=== PATIENT | female | born 1970 | race Caucasian/White ===

== ENCOUNTER 2016-10-30 05:54 | Day surgery (SDC) | payer OTHER ==
[~2016-10-30] VITALS: Ht 162.6 cm; Wt 61.2 kg
--- NOTE | ~2016-10-30 | H ---
[facility] [place] [address] HISTORY AND PHYSICAL Name: PEDRO LUIS CRISTINA Room #: 150-4 [facility]..#: [id number] Admission: 10/30/16 Attend Phys: Joseph Polanco MD Discharge: Date of : 74 Report #: [id number] THIS REPORT FOR: //name// CC: Joseph Bundy [facility] ANTICIPATED DATE OF PROCEDURE: 10/30/2016. HISTORY OF PRESENT ILLNESS: The patient has been on several courses of antibiotics since June for sinus infections. She has drainage, headache, cough, wheezing, nasal congestion and yellow-green mucus. She has been treated with steroids and antibiotics. She has a deviated nasal septum. PAST MEDICAL HISTORY: Otherwise significant for asthma, heart problems and migraine headaches. MEDICATIONS: Cyclobenzaprine, Zyrtec, pantoprazole, Elmiron, Carafate, Singulair, acyclovir, citalopram, clonazepam and trazodone. ALLERGIES: She is allergic to PENICILLIN, SULFA, ASPIRIN and LATEX. PHYSICAL EXAMINATION: HEENT: She has a severely deviated nasal septum to the right side with stringy mucus and irritation. Her oropharynx and oral cavity were clear. NECK: She had no adenopathy or masses in her neck. IMPRESSION: Deviated nasal septum with nasal airway obstruction. PLAN: Nasal septoplasty. <ELECTRONICALLY SIGNED> By: Joseph Polanco MD 10/30/16 0740 [id number] Joseph Polanco MD /thalia
--- NOTE | ~2016-10-30 | O ---
[facility] [place] [address] OPERATIVE REPORT Name: PEDRO LUIS CRISTINA Room #: 150-4 [facility] M..#: [id number] Admission: 10/30/16 Attend Phys: Joseph Polanco MD Discharge: Date of : 74 Report #: [id number] THIS REPORT FOR: //name// CC: Joseph Bundy [facility] DATE OF SERVICE: 10/30/2016 PREOPERATIVE DIAGNOSIS: Deviated nasal septum with nasal airway obstruction. POSTOPERATIVE DIAGNOSIS: Deviated nasal septum with nasal airway obstruction. OPERATIVE PROCEDURE: Nasal septoplasty. ANESTHESIA: General by laryngeal mask. DESCRIPTION OF PROCEDURE: The patient was taken to the operating room and placed in supine position. General anesthesia was induced by laryngeal mask. Once adequate general anesthesia was obtained, local nasal anesthesia was induced by the submucoperichondrial injection of 1% lidocaine with 1:100,000 epinephrine and topical application of cocaine solution. The patient was then draped in a sterile manner. The patient had a nasal septal deviation primarily to the right side, with protrusion of the cartilage into the left nasal vestibule. A hemitransfixion incision was placed on the right side of the nose and the mucoperichondrium and mucoperiosteum were elevated off of the septum. The cartilage was incised in front of the bony cartilaginous junction and a portion of cartilage and bone was removed from the midportion of the septum. There was septal spur along the floor, which consisted of hypertrophic cartilage and a fracture of the maxillary crest. The cartilage was removed as a long strip and the maxillary crest was infractured. I then isolated the anterior cartilaginous septum on both sides and trimmed 2 mm of free edge cartilage and then fitted into a columellar pocket. After these maneuvers, the septum sat more in the midline. The hemitransfixion incision was then closed with 4-0 chromic suture and a 4-0 plain mattress suture was placed as well. The patient tolerated the procedure well. Blood loss approximately 10 mL. The patient was then awoken and taken to the recovery room in stable condition for postoperative monitoring. By: [id number] Joseph Polanco MD /nt
[~2016-10-30 05:54] MED LIST: ACYCLOVIR 400400 MG PO; ADVAIR 250-501 EACH INH; CARAFATE 1 GM TA1 G1 PO; CEFDINIR300 MG PO; CETIRIZINE HCL10 MG PO; CITALOPRAM HBR40 MG PO; CLONAZEPAM 0.50.5 M1 PO; DICYCLOMINE HCL20 MG PO; DILAUDID4 MG PO; ELMIRON 100 MG100 M1 PO; FLONASE 0.05%50 MCG NASAL; GAS-X125 MG PO; HYDROCODON-ACE1 EAC7 PO; IMITREX 25 MG T25 M1 PO; LIORESAL 10 MG10 MG PO; METHENAMINE HIPP1 G1 PO; MIRENA1 EACH IY; MUCINEX TA600 MG/TA2 PO; NAPROSYN500 MG PO; ONDANSETRON HCL4 M2 PO; PANTOPRAZOLE SO40 M1 PO; PRENATE ELITE1 EAC2 PO; REQUIP1 MG PO; SINGULAIR 10 MG10 M1 PO; STOOL SOFTENER100 MG PO; SUDAFED PE10 M2 PO; TRAZODONE HCL100 MG PO; ZANAFLEX4 MG PO
[2016-10-30 08:30] VITALS: BP 100/66
== END 2016-10-30 10:10 | disposition home or self-care (01) ==
LOC: OR 05:54 → TBA 05:54 → OR 09:00
DX: J34.2 Deviated nasal septum (principal); J34.89 Other specified disorders of nose and nasal sinuses; J45.909 Unspecified asthma, uncomplicated; G43.909 Migraine, unspecified, not intractable, without status migrainosus; I50.9 Heart failure, unspecified; K21.9 Gastro-esophageal reflux disease without esophagitis; F32.9 Major depressive disorder, single episode, unspecified; F41.9 Anxiety disorder, unspecified; F17.210 Nicotine dependence, cigarettes, uncomplicated; Z90.49 Acquired absence of other specified parts of digestive tract; Z98.890 Other specified postprocedural states
CPT/HCPCS: 50010; 50101; 50386; 50398; 50426; 56524; 56528; 62110; 62900; 64037; 70005